=== PATIENT | female | born 1960 | race Caucasian/White ===

== ENCOUNTER → 2023-12-09 16:54 | Outpatient (REF) | payer SELFPAY | LOC: RAD 16:54 | PROVIDERS: ATTENDING PHYSICIAN Internal Medicine | DX: E78.2 Mixed hyperlipidemia (principal) | CPT/HCPCS: 75571 ==

== ENCOUNTER → 2024-12-03 13:58 | Outpatient (REF) | payer MEDICARE, SELFPAY | LOC: WDC 13:58 | PROVIDERS: ATTENDING PHYSICIAN Internal Medicine | DX: Z12.31 Encounter for screening mammogram for malignant neoplasm of breast (principal) | CPT/HCPCS: 77063; 77067 ==